=== PATIENT | female | born 2005 | race African-American/Black ===

== ENCOUNTER 2024-09-27 17:44 | Emergency (ER) | payer OTHER ==
[~2024-09-27] VITALS: Ht 172.7 cm; Wt 65.0 kg
[~2024-09-27 17:44] MED LIST: HYDROCODON-ACE1 EA10 PO; IBUPROFEN800 MG PO; NEXPLANON68 MG SUB-Q; ONDANSETRON ODT4 MG PO; RIZATRIPTAN5 M1 PO; VENTOLIN HFA18 GM
[2024-09-27 19:18] VITALS: BP 127/83
== END 2024-09-27 19:20 | disposition home or self-care (01) ==
LOC: ED 17:44
DX: J06.9 Acute upper respiratory infection, unspecified (principal); Z88.8 Allergy status to other drugs, medicaments and biological substances; Z79.899 Other long term (current) drug therapy
CPT/HCPCS: 87651; 99283